=== PATIENT | female | born 1975 | race American Indian/Alaskan Native ===

== ENCOUNTER 2017-07-23 07:02 | Outpatient (CLI) | payer BC ==
--- NOTE | 2017-07-23 10:04 | Mammography Report ---
Bilateral mammogram: Compared to 05/30/15. CAD study utilized. Findings: The predominance of adipose tissue bilaterally. No mass or microcalcification. Benign calcifications left breast. Benign axilla. Impression: Benign findings. Annual followup recommended. BI-RADS CATEGORY: 2 = Benign ACR BI-RADS MAMMOGRAPHIC CODES: 0 = Needs additional imaging evaluation; 1 = Negative; 2 = Benign; 3 = Probably benign; 4 = Suspicious; 5 = Malignant; 6 = Known biopsy-proven malignancy COMMENT: 1. Dense breast tissue, i.e., adenosis, fibrocystic changes, etc., may obscure an underlying neoplasm. 2. Approximately 10% of cancers are not detected with mammography. 3. A negative mammography report should not delay biopsy if a clinically suspicious mass is present. COMMENT: Patient follow-up letters are generated in [employer].
== END 2017-07-23 07:03 | disposition home or self-care (01) ==
LOC: MAMMO 07:02
PROVIDERS: ATTEND Family Medicine
DX: Z12.31 Encounter for screening mammogram for malignant neoplasm of breast (principal)
CPT/HCPCS: 77067; G0202

== ENCOUNTER 2019-02-22 07:50 | Outpatient (CLI) | payer BC ==
--- NOTE | 2019-02-22 09:42 | Mammography Report ---
BILATERAL DIGITAL SCREENING MAMMOGRAM with CAD: 02/22/19 07:50:00 CLINICAL: Routine screening. COMPARISON:07/23/17 FINDINGS: The breasts was a fatty with a few residual bilateral retroareolar heterogeneously dense fibroglandular densities. No mass, architectural distortion or suspicious calcifications. IMPRESSION: No mammographic evidence of malignancy. BI-RADS CATEGORY: 1 - - Negative RECOMMENDATION: Routine mammographic screening in one year. COMMENT: Patient follow-up letters are generated by our [employer] application.
== END 2019-02-22 07:51 | disposition home or self-care (01) ==
LOC: MAMMO 07:50
PROVIDERS: ATTEND Obstetrics & Gynecology
DX: Z12.31 Encounter for screening mammogram for malignant neoplasm of breast (principal)
CPT/HCPCS: 77067

== ENCOUNTER 2020-03-01 07:49 | Outpatient (CLI) | payer BC ==
--- NOTE | 2020-03-01 08:50 | Mammography Report ---
DIGITAL SCREENING MAMMOGRAM WITH CAD, 03/01/2020 INDICATION: Routine screening mammography. TECHNIQUE: Digital bilateral 2D mammography was obtained in the craniocaudal and mediolateral obliq ue projections. This examination was interpreted with the benefit of Computer-Aided Detection analysi s. COMPARISON: 07/23/2017, 02/22/2019 FINDINGS: Breast Density: There are scattered areas of fibroglandular density. There is no evidence of dominant mass, suspicious calcifications or architectural distortion in eithe r breast. Small benign nodules in both breasts are unchanged. IMPRESSION: Follow up recommendation: Routine yearly BI-RADS Category 2: Benign. A "normal" or negative report should not discourage follow up or biopsy of a clinically significant f inding. A written summary of these findings will be mailed to the patient. The patient will be entered into a mammography reporting system which will generate a reminder letter for the patient's next appointmen t at the appropriate interval. The [employer] recommends yearly mammograms starting at age 40 and continuing as l kristopher as a woman is in good health. Breast MRI is recommended for women with an approximate 20-25% or greater lifetime risk of breast cancer, including women with a strong family history of breast or ova hillary cancer or who have been treated for Hodgkin's disease. Signer Name: Romaine Munoz MD Signed: 03/01/2020 8:46 AM Workstation Name: [id number]
== END 2020-03-01 07:50 | disposition home or self-care (01) ==
LOC: MAMMO 07:49
PROVIDERS: ATTEND Obstetrics & Gynecology
DX: N63.0 Unspecified lump in unspecified breast (principal)
CPT/HCPCS: 77067